=== PATIENT | male | born 1945 | race Caucasian/White ===

== ENCOUNTER 2023-12-10 14:29 | Emergency (ER) | payer OTHER, MEDICARE ==
[~2023-12-10] VITALS: Ht 193 cm; Wt 119.3 kg
[2023-12-10 14:39] VITALS: BP_SYST 137; PULSE 82; RESP 19; TEMP 98.2; O2SAT 96
[2023-12-10] MEDS: LIDOCAINE 1% 10 MG/ML, 20 ML MDV INJ ONE (15:30)
[2023-12-10 16:23] VITALS: BP_SYST 137; PULSE 83; RESP 19; TEMP 98.2; O2SAT 94
== END 2023-12-10 16:23 | disposition home or self-care (01) ==
LOC: SED 14:29
DX: S60.445A External constriction of left ring finger, initial encounter (principal); J44.9 Chronic obstructive pulmonary disease, unspecified; I12.0 Hypertensive chronic kidney disease with stage 5 chronic kidney disease or end stage renal disease; N18.6 End stage renal disease; Z79.899 Other long term (current) drug therapy; W49.04XA Ring or other jewelry causing external constriction, initial encounter; Y93.89 Activity, other specified; Y92.89 Other specified places as the place of occurrence of the external cause; Y99.8 Other external cause status
CPT/HCPCS: 99284; J2001

== ENCOUNTER 2023-12-29 06:39 | Inpatient (IN) | payer OTHER, MEDICARE ==
[~2023-12-29] VITALS: Ht 193 cm; Wt 113.6 kg
[2023-12-29 06:46] VITALS: BP_SYST 160; PULSE 88; RESP 14; TEMP 97.6; O2SAT 92
[2023-12-29] MEDS: ASPIRIN 81 MG TAB.CHEW PO ONE (06:58)
[2023-12-29] MEDS: NITROGLYCERIN 1 INCH (GM) OINT. TP ONE (07:00)
[2023-12-29 07:01] LABS: BASOPHILS # (AUTO) 0.1 K/uL (0.0-0.2); BASOPHILS % (AUTO) 0.9 % (0.0-2.0); EOSINOPHILS # (AUTO) 0.2 K/uL (0.0-0.4); EOSINOPHILS % (AUTO) 1.6 % (0.0-4.0); HEMATOCRIT 33.6 % (36-54); HEMOGLOBIN 11.7 g/dL (14.0-18.0); LYMPHOCYTES # (AUTO) 1.6 K/uL (1.0-5.5); LYMPHOCYTES % (AUTO) 15.7 % (20.5-51.5); MEAN CORPUSCULAR HEMOGLOBIN 33 pg (27-31); MEAN CORPUSCULAR HGB CONC 35 % (32-36); MEAN CORPUSCULAR VOLUME 93 fL (79.0-98.0); MONOCYTES # (AUTO) 0.6 K/uL (0.0-1.0); MONOCYTES % (AUTO) 5.9 % (1.7-9.3); NEUTROPHILS # (AUTO) 7.7 K/uL (1.8-7.7); NEUTROPHILS % (AUTO) 75.9 % (40.0-70.0); PLATELET COUNT (AUTO) 182 K/uL (130-430); RED CELL DISTRIBUTION WIDTH 16.9 % (9.0-15.0); WHITE BLOOD COUNT (AUTO) 10.1 K/uL (4.8-10.8)
[2023-12-29] MEDS: MORPHINE 2 MG/ML INJ. SYRINGE IVP ONE (07:02)
[2023-12-29] MEDS: NITROGLYCERIN 0.4 MG TAB.SUBL SL ONE (07:02)
[2023-12-29 07:20] LABS: ANION GAP 16 (5-15); CALCIUM 9.1 mg/dL (8.4-11.0); CARBON DIOXIDE 24 mmol/L (23-29); CHLORIDE 105 mmol/L (98-107); CREATININE 5.78 mg/dL (0.55-1.30); GLUCOSE 152 mg/dL (74-106); POTASSIUM 3.6 mmol/L (3.5-5.1); SODIUM SERUM 145 mmol/L (136-145); UREA NITROGEN, BLOOD 52 mg/dL (8-21)
[2023-12-29] MEDS ORDERED: ATOR-1 PO (07:29)
[2023-12-29] MEDS ORDERED: DONE10TA4 PO (07:29)
[2023-12-29] MEDS ORDERED: FOLI-43 PO (07:29)
[2023-12-29] MEDS ORDERED: PANT20TA2 PO (07:29)
[2023-12-29] MEDS ORDERED: RIVA15TA PO (07:29)
[2023-12-29] MEDS ORDERED: FURO20TA4 PO (07:29)
[2023-12-29] MEDS ORDERED: FLUT1BLS5 INH (07:38)
[2023-12-29] MEDS ORDERED: ONDANSETRON HCL 4 MG/2 ML VIAL IVP PRN (08:30)
[2023-12-29] MEDS ORDERED: MAGNESIUM SULFATE 50 ML IV PRN (08:30)
[2023-12-29] MEDS ORDERED: LORazepam 2 MG/ML VIAL IVP PRN (08:30)
[2023-12-29] MEDS ORDERED: MORPHINE 2 MG/ML INJ. SYRINGE IVP PRN (08:30)
[2023-12-29] MEDS ORDERED: MUPIROCIN 2% TOPICAL OINTMENT 22 GM NS PRN (08:30)
[2023-12-29] MEDS ORDERED: ZOLPIDEM TARTRATE 5 MG TABLET PO PRN (08:30)
[2023-12-29 09:59] VITALS: BP_SYST 133; PULSE 60; RESP 16; TEMP 98; O2SAT 96
[2023-12-29] MEDS: IPRATROPIUM/ALBUTEROL SULFATE 3 ML AMPUL.NEB (DUONEB) ONE (10:29)
[2023-12-29 10:30] VITALS: BP_SYST 123; PULSE 69; O2SAT 97
[2023-12-29 10:40] VITALS: O2SAT 97
[2023-12-29] MEDS ORDERED: IPRATROPIUM/ALBUTEROL SULFATE 3 ML AMPUL.NEB (DUONEB) INH ONE (11:00)
[2023-12-29] MEDS ORDERED: ACETAMINOPHEN 500 MG TABLET PO PRN ×2 (11:15)
[2023-12-29] MEDS: FOLIC ACID 1 MG TABLET PO ONE (11:17)
[2023-12-29] MEDS: ATORVASTATIN 20 MG TABLET PO ONE (11:17)
[2023-12-29] MEDS: FUROSEMIDE 20 MG TABLET PO ONE (11:29)
[2023-12-29 12:00] VITALS: BP_SYST 131; PULSE 16; RESP 16; TEMP 98; O2SAT 97
[2023-12-29] MEDS: RIVAROXABAN 15 MG TABLET PO ONE (12:38)
[2023-12-29] MEDS ORDERED: FOLI0.8T42 PO (14:05)
[2023-12-29] MEDS ORDERED: SERT25TA PO (14:05)
[2023-12-29] MEDS ORDERED: COR6.25 PO (14:05)
[2023-12-29] MEDS ORDERED: IPRATROPIUM/ALBUTEROL SULFATE 3 ML AMPUL.NEB (DUONEB) INH PRN (16:00)
[2023-12-29 20:20] VITALS: BP_SYST 133; PULSE 72; RESP 20; TEMP 97.9; O2SAT 96; O2SAT 98
[2023-12-29] MEDS: CARVEDILOL 6.25 MG TABLET (COREG) PO SCH (22:49)
[2023-12-30] VITALS (7 sets, daily range): BP systolic 103–144; PULSE 59–70; RESP 12–20; TEMP 97.5–98.2; O2SAT 91–98
[2023-12-30] MEDS: ACETAMINOPHEN 500 MG TABLET PO PRN (01:14)
[2023-12-30 04:43] LABS: ANION GAP 10 (5-15); CALCIUM 8.7 mg/dL (8.4-11.0); CARBON DIOXIDE 31 mmol/L (23-29); CHLORIDE 103 mmol/L (98-107); GLUCOSE 123 mg/dL (74-106); SODIUM SERUM 144 mmol/L (136-145); UREA NITROGEN, BLOOD 40 mg/dL (8-21)
[2023-12-30] MEDS: MORPHINE 2 MG/ML INJ. SYRINGE IVP PRN (04:49)
[2023-12-30 04:52] LABS: BASOPHILS # (AUTO) 0.1 K/uL (0.0-0.2); BASOPHILS % (AUTO) 1.4 % (0.0-2.0); EOSINOPHILS # (AUTO) 0.1 K/uL (0.0-0.4); EOSINOPHILS % (AUTO) 1.6 % (0.0-4.0); HEMATOCRIT 31.1 % (36-54); HEMOGLOBIN 10.9 g/dL (14.0-18.0); LYMPHOCYTES # (AUTO) 1.4 K/uL (1.0-5.5); LYMPHOCYTES % (AUTO) 17.2 % (20.5-51.5); MEAN CORPUSCULAR HEMOGLOBIN 33 pg (27-31); MEAN CORPUSCULAR HGB CONC 35 % (32-36); MEAN CORPUSCULAR VOLUME 93 fL (79.0-98.0); MONOCYTES # (AUTO) 0.7 K/uL (0.0-1.0); MONOCYTES % (AUTO) 9.1 % (1.7-9.3); NEUTROPHILS # (AUTO) 5.6 K/uL (1.8-7.7); NEUTROPHILS % (AUTO) 70.7 % (40.0-70.0); PLATELET COUNT (AUTO) 159 K/uL (130-430); RED BLOOD CELL COUNT(AUTO) 3.34 MIL/uL (4.2-6.2); RED CELL DISTRIBUTION WIDTH 16.8 % (9.0-15.0); WHITE BLOOD COUNT (AUTO) 7.9 K/uL (4.8-10.8)
[2023-12-30] MEDS: FOLIC ACID 1 MG TABLET PO SCH (08:42)
[2023-12-30] MEDS: ATORVASTATIN 20 MG TABLET PO SCH (08:43)
[2023-12-30] MEDS: RIVAROXABAN 15 MG TABLET PO SCH (08:46)
[2023-12-30] MEDS: FUROSEMIDE 20 MG TABLET PO SCH (08:48)
[2023-12-30] MEDS: POTASSIUM CHLORIDE 20 MEQ TABLET.ER PO PRN (09:00)
[2023-12-30] MEDS: HYDROcodone/ACETAMIN 5-325 MG TAB (NORCO/ VICODIN) PO PRN (12:06)
[2023-12-30] MEDS: CARVEDILOL 3.125 MG TABLET (COREG) PO SCH (21:19)
[2023-12-30] MEDS: SERTRALINE HCL 50 MG TABLET PO SCH (21:19)
[2023-12-31 00:05] VITALS: BP_SYST 138; PULSE 65; RESP 18; TEMP 97.5; O2SAT 95
[2023-12-31] MEDS: DOCUSATE SODIUM 100 MG CAPSULE PO PRN (00:09)
[2023-12-31 03:30] VITALS: O2SAT 95
[2023-12-31 05:57] LABS: BASOPHILS # (AUTO) 0.2 K/uL (0.0-0.2); BASOPHILS % (AUTO) 2.2 % (0.0-2.0); EOSINOPHILS # (AUTO) 0.2 K/uL (0.0-0.4); EOSINOPHILS % (AUTO) 2.8 % (0.0-4.0); HEMATOCRIT 32.1 % (36-54); HEMOGLOBIN 11.2 g/dL (14.0-18.0); LYMPHOCYTES # (AUTO) 1.9 K/uL (1.0-5.5); LYMPHOCYTES % (AUTO) 25.3 % (20.5-51.5); MEAN CORPUSCULAR HEMOGLOBIN 32 pg (27-31); MEAN CORPUSCULAR HGB CONC 35 % (32-36); MEAN CORPUSCULAR VOLUME 93 fL (79.0-98.0); MONOCYTES # (AUTO) 0.7 K/uL (0.0-1.0); MONOCYTES % (AUTO) 9.6 % (1.7-9.3); NEUTROPHILS # (AUTO) 4.6 K/uL (1.8-7.7); NEUTROPHILS % (AUTO) 60.1 % (40.0-70.0); PLATELET COUNT (AUTO) 178 K/uL (130-430); RED BLOOD CELL COUNT(AUTO) 3.45 MIL/uL (4.2-6.2); RED CELL DISTRIBUTION WIDTH 16.6 % (9.0-15.0); WHITE BLOOD COUNT (AUTO) 7.6 K/uL (4.8-10.8)
[2023-12-31 06:26] LABS: ALANINE AMINOTRANSFERASE 18 U/L (12-78); ALBUMIN 3.5 g/dL (3.4-4.8); ANION GAP 12 (5-15); ASPARTATE AMINOTRANSFERASE < 5 U/L (10-37); BILIRUBIN,DIRECT 0.2 mg/dL (0.0-0.3); CALCIUM 9.1 mg/dL (8.4-11.0); CARBON DIOXIDE 28 mmol/L (23-29); CHLORIDE 104 mmol/L (98-107); CREATININE 5.55 mg/dL (0.55-1.30); GLUCOSE 127 mg/dL (74-106); POTASSIUM 3.8 mmol/L (3.5-5.1); SODIUM SERUM 144 mmol/L (136-145); TOTAL PROTEIN, SERUM 6.9 g/dL (6.4-8.3); UREA NITROGEN, BLOOD 53 mg/dL (8-21)
[2023-12-31 07:25] VITALS: BP_SYST 146; PULSE 86; RESP 18; TEMP 97.1; O2SAT 96
[2023-12-31 13:30] VITALS: BP_SYST 121; PULSE 136; RESP 18; TEMP 97.1; O2SAT 93
[2024-01-01] MEDS ORDERED: PANT40TA45 PO (11:57)
== END 2023-12-31 14:15 | disposition home or self-care (01) | DRG 291 ==
LOC: SED 06:39 → STU 08:23 → SMU 12-30 16:11
PROVIDERS: ADMIT General Practice; ATTEND General Practice
PROC: 5A1D70Z Performance of Urinary Filtration, Intermittent, Less than 6 Hours Per Day (ICD-10-PCS; principal; 2023-12-29)
PROC: 5A1D70Z Performance of Urinary Filtration, Intermittent, Less than 6 Hours Per Day (ICD-10-PCS; 2023-12-31)
DX: I13.2 Hypertensive heart and chronic kidney disease with heart failure and with stage 5 chronic kidney disease, or end stage renal disease (principal); I50.43 Acute on chronic combined systolic (congestive) and diastolic (congestive) heart failure; N18.6 End stage renal disease; I48.20 Chronic atrial fibrillation, unspecified; I25.10 Atherosclerotic heart disease of native coronary artery without angina pectoris; G30.8 Other Alzheimer's disease; J44.9 Chronic obstructive pulmonary disease, unspecified; E78.5 Hyperlipidemia, unspecified; D63.1 Anemia in chronic kidney disease; F02.80 Dementia in other diseases classified elsewhere, unspecified severity, without behavioral disturbance, psychotic disturbance, mood disturbance, and anxiety; Z79.899 Other long term (current) drug therapy; Z99.2 Dependence on renal dialysis; Z95.5 Presence of coronary angioplasty implant and graft; Z95.0 Presence of cardiac pacemaker; Z90.49 Acquired absence of other specified parts of digestive tract; Z87.891 Personal history of nicotine dependence; Z79.01 Long term (current) use of anticoagulants
CPT/HCPCS: 36415; 71045; 80048; 80076; 82948; 83037; 83735; 83880; 84484; 85025; 87081; 90935; 93005; 93306; 93880; 94640; 94760; 96374; 97112-GP; 97116-GP; 99285; G0378; J2270

== ENCOUNTER 2023-12-31 23:12 | Inpatient (IN) | payer OTHER, MEDICARE ==
[~2023-12-31] VITALS: Ht 193 cm; Wt 112.1 kg
[~2023-12-31 23:12] MED LIST: ATOR-1 PO; COR6.25 PO; DONE10TA4 PO; FLUT1BLS5 INH; FOLI-43 PO; FOLI0.8T42 PO; FURO20TA4 PO; PANT20TA2 PO; RIVA15TA PO; SERT25TA PO
[2023-12-31 23:49] VITALS: BP_SYST 119; PULSE 65; RESP 19; TEMP 97.5; O2SAT 93
[2024-01-01] VITALS (8 sets, daily range): BP systolic 129–142; PULSE 60–78; RESP 14–20; TEMP 98.3–98.7; O2SAT 92–95
[2024-01-01] MEDS ORDERED: ACETAMINOPHEN 325 MG TABLET PO PRN (00:30)
[2024-01-01] MEDS ORDERED: VANCOMYCIN HCL 1000 MG/VIAL IV ONE (00:54)
[2024-01-01] MEDS: VANCOMYCIN HCL 1,000 MG in NS 250 ML IV ONE (01:11)
[2024-01-01] MEDS: MORPHINE 4 MG INJ. 4 MG/ML VIAL IVP ONE (01:19)
[2024-01-01 01:20] LABS: BASOPHILS # (AUTO) 0.2 K/uL (0.0-0.2); BASOPHILS % (AUTO) 2.5 % (0.0-2.0); EOSINOPHILS # (AUTO) 0.1 K/uL (0.0-0.4); EOSINOPHILS % (AUTO) 1.1 % (0.0-4.0); HEMATOCRIT 32.5 % (36-54); HEMOGLOBIN 11.7 g/dL (14.0-18.0); LYMPHOCYTES # (AUTO) 1.5 K/uL (1.0-5.5); MEAN CORPUSCULAR HEMOGLOBIN 33 pg (27-31); MEAN CORPUSCULAR HGB CONC 36 % (32-36); MEAN CORPUSCULAR VOLUME 92 fL (79.0-98.0); MONOCYTES % (AUTO) 10.7 % (1.7-9.3); NEUTROPHILS # (AUTO) 6.6 K/uL (1.8-7.7); NEUTROPHILS % (AUTO) 69.7 % (40.0-70.0); PLATELET COUNT (AUTO) 187 K/uL (130-430); RED BLOOD CELL COUNT(AUTO) 3.55 MIL/uL (4.2-6.2); RED CELL DISTRIBUTION WIDTH 16.9 % (9.0-15.0); WHITE BLOOD COUNT (AUTO) 9.5 K/uL (4.8-10.8)
[2024-01-01 02:01] LABS: ANION GAP 12 (5-15); CALCIUM 9.4 mg/dL (8.4-11.0); CARBON DIOXIDE 27 mmol/L (23-29); CHLORIDE 102 mmol/L (98-107); CREATININE 5.08 mg/dL (0.55-1.30); GLUCOSE 145 mg/dL (74-106); POTASSIUM 4.2 mmol/L (3.5-5.1); SODIUM SERUM 141 mmol/L (136-145); UREA NITROGEN, BLOOD 54 mg/dL (8-21)
[2024-01-01] MEDS: CEFEPIME 1 GM/VIAL (MAXIPIME) ONE (03:37)
[2024-01-01] MEDS: CEFEPIME 1 GM in D5W 50 ML IV ONE (03:44)
[2024-01-01] MEDS: HYDROcodone/ACETAMIN 5-325 MG TAB (NORCO/ VICODIN) PO PRN (06:22)
[2024-01-01] MEDS ORDERED: ONDANSETRON HCL 4 MG/2 ML VIAL IVP PRN (06:45)
[2024-01-01] MEDS ORDERED: ALBUTEROL SULFATE 0.083% 2.5 MG/3 ML VIAL.NEB INH PRN (06:45)
[2024-01-01] MEDS ORDERED: IPRATROPIUM BROM 0.5 MG/2.5 ML VIAL.NEB (ATROVENT) INH PRN (06:45)
[2024-01-01 07:45] LABS: ALANINE AMINOTRANSFERASE 23 U/L (12-78); ALBUMIN 3.4 g/dL (3.4-4.8); ANION GAP 11 (5-15); ASPARTATE AMINOTRANSFERASE < 5 U/L (10-37); CARBON DIOXIDE 26 mmol/L (23-29); CHLORIDE 104 mmol/L (98-107); GLUCOSE 134 mg/dL (74-106); POTASSIUM 3.6 mmol/L (3.5-5.1); SODIUM SERUM 141 mmol/L (136-145); TOTAL BILIRUBIN 0.8 mg/dL (0.0-1.0); TOTAL PROTEIN, SERUM 6.9 g/dL (6.4-8.3); UREA NITROGEN, BLOOD 54 mg/dL (8-21)
[2024-01-01] MEDS: PANTOPRAZOLE SODIUM 40 MG TAB PO SCH (09:38)
[2024-01-01] MEDS: CARVEDILOL 6.25 MG TABLET (COREG) PO SCH (09:39)
[2024-01-01] MEDS: SERTRALINE HCL 50 MG TABLET PO SCH (09:40)
[2024-01-01] MEDS ORDERED: PANT40TA45 PO (11:57)
[2024-01-01] MEDS: NS IV SCH (12:52)
[2024-01-01] MEDS: DAPTOMYCIN IV SCH (12:52)
[2024-01-01] MEDS: RIVAROXABAN 15 MG TABLET PO SCH (19:07)
[2024-01-01] MEDS ORDERED: CEFEPIME 0.5 GM in D5W 50 ML IV SCH (21:00)
[2024-01-01] MEDS: ATORVASTATIN 20 MG TABLET PO SCH (21:20)
[2024-01-01] MEDS: DONEPEZIL HCL 5 MG TABLET (ARICEPT) PO SCH (21:20)
[2024-01-02] VITALS: BP_SYST 135; PULSE 64; RESP 16; TEMP 98.8; O2SAT 97
[2024-01-02 05:07] LABS: BASOPHILS # (AUTO) 0.1 K/uL (0.0-0.2); BASOPHILS % (AUTO) 1.7 % (0.0-2.0); EOSINOPHILS # (AUTO) 0.2 K/uL (0.0-0.4); HEMATOCRIT 30.8 % (36-54); HEMOGLOBIN 10.7 g/dL (14.0-18.0); LYMPHOCYTES # (AUTO) 1.7 K/uL (1.0-5.5); LYMPHOCYTES % (AUTO) 24.8 % (20.5-51.5); MEAN CORPUSCULAR HEMOGLOBIN 32 pg (27-31); MEAN CORPUSCULAR HGB CONC 35 % (32-36); MEAN CORPUSCULAR VOLUME 93 fL (79.0-98.0); MONOCYTES # (AUTO) 0.7 K/uL (0.0-1.0); MONOCYTES % (AUTO) 10.2 % (1.7-9.3); NEUTROPHILS # (AUTO) 4.1 K/uL (1.8-7.7); NEUTROPHILS % (AUTO) 60.3 % (40.0-70.0); PLATELET COUNT (AUTO) 164 K/uL (130-430); RED BLOOD CELL COUNT(AUTO) 3.31 MIL/uL (4.2-6.2); RED CELL DISTRIBUTION WIDTH 16.3 % (9.0-15.0); WHITE BLOOD COUNT (AUTO) 6.8 K/uL (4.8-10.8)
[2024-01-02 05:27] LABS: ANION GAP 12 (5-15); CALCIUM 8.9 mg/dL (8.4-11.0); CARBON DIOXIDE 26 mmol/L (23-29); CHLORIDE 101 mmol/L (98-107); CREATININE 6.02 mg/dL (0.55-1.30); GLUCOSE 113 mg/dL (74-106); SODIUM SERUM 139 mmol/L (136-145); UREA NITROGEN, BLOOD 61 mg/dL (8-21)
[2024-01-02 08:00] VITALS: BP_SYST 143; PULSE 82; RESP 18; TEMP 97.9; O2SAT 98
[2024-01-02 12:37] VITALS: BP_SYST 118; PULSE 79; RESP 16; TEMP 98.1; O2SAT 97
[2024-01-02 12:53] VITALS: BP_SYST 122; PULSE 80; RESP 18; TEMP 98
[2024-01-02 16:25] VITALS: BP_SYST 126; PULSE 73; RESP 16; TEMP 98.8; O2SAT 97
[2024-01-02 20:00] VITALS: BP_SYST 135; PULSE 75; RESP 18; TEMP 98.6; O2SAT 96
[2024-01-02] MEDS: HYDROcodone/ACETAMIN 10-325 MG TAB PO PRN (21:13)
[2024-01-03] VITALS: BP_SYST 129; PULSE 78; RESP 18; TEMP 97.2; O2SAT 96
[2024-01-03 00:09] VITALS: BP_SYST 113; PULSE 97; RESP 18; TEMP 98.2; O2SAT 95
[2024-01-03 06:36] LABS: BASOPHILS # (AUTO) 0.2 K/uL (0.0-0.2); BASOPHILS % (AUTO) 2.1 % (0.0-2.0); EOSINOPHILS # (AUTO) 0.2 K/uL (0.0-0.4); EOSINOPHILS % (AUTO) 2.5 % (0.0-4.0); HEMATOCRIT 34.5 % (36-54); HEMOGLOBIN 12.1 g/dL (14.0-18.0); LYMPHOCYTES # (AUTO) 2.2 K/uL (1.0-5.5); LYMPHOCYTES % (AUTO) 26.7 % (20.5-51.5); MEAN CORPUSCULAR HEMOGLOBIN 33 pg (27-31); MEAN CORPUSCULAR HGB CONC 35 % (32-36); MEAN CORPUSCULAR VOLUME 93 fL (79.0-98.0); MONOCYTES # (AUTO) 0.9 K/uL (0.0-1.0); MONOCYTES % (AUTO) 10.9 % (1.7-9.3); NEUTROPHILS # (AUTO) 4.7 K/uL (1.8-7.7); NEUTROPHILS % (AUTO) 57.8 % (40.0-70.0); PLATELET COUNT (AUTO) 203 K/uL (130-430); RED BLOOD CELL COUNT(AUTO) 3.71 MIL/uL (4.2-6.2); RED CELL DISTRIBUTION WIDTH 16.8 % (9.0-15.0); WHITE BLOOD COUNT (AUTO) 8.1 K/uL (4.8-10.8)
[2024-01-03 06:54] LABS: ANION GAP 10 (5-15); CALCIUM 9.3 mg/dL (8.4-11.0); CARBON DIOXIDE 29 mmol/L (23-29); CHLORIDE 99 mmol/L (98-107); CREATINE KINASE, TOTAL 97 U/L (39-308); CREATININE 5.41 mg/dL (0.55-1.30); GLUCOSE 125 mg/dL (74-106); POTASSIUM 3.8 mmol/L (3.5-5.1); SODIUM SERUM 138 mmol/L (136-145); UREA NITROGEN, BLOOD 47 mg/dL (8-21)
[2024-01-03 08:00] VITALS: BP_SYST 124; PULSE 64; RESP 18; TEMP 97.7; O2SAT 96
[2024-01-03 12:00] VITALS: BP_SYST 110; PULSE 62; RESP 19; TEMP 97.5; O2SAT 97
[2024-01-03] MEDS ORDERED: fentaNYL CITRATE/PF 100 MCG/2 ML AMP ONE (13:19)
[2024-01-03 16:00] VITALS: BP_SYST 109; PULSE 63; RESP 18; TEMP 97.8; O2SAT 97
[2024-01-03 20:23] VITALS: BP_SYST 118; PULSE 58; RESP 16; TEMP 98.2; O2SAT 97
[2024-01-04] VITALS: BP_SYST 114; PULSE 64; RESP 17; TEMP 97.7; O2SAT 98
[2024-01-04 06:35] VITALS: BP_SYST 133; PULSE 62; RESP 16
[2024-01-04 07:27] LABS: ALANINE AMINOTRANSFERASE 26 U/L (12-78); ALBUMIN 3.7 g/dL (3.4-4.8); ANION GAP 10 (5-15); ASPARTATE AMINOTRANSFERASE 17 U/L (10-37); CALCIUM 9.4 mg/dL (8.4-11.0); CARBON DIOXIDE 27 mmol/L (23-29); CHLORIDE 103 mmol/L (98-107); CREATININE 6.68 mg/dL (0.55-1.30); GLUCOSE 113 mg/dL (74-106); POTASSIUM 4.2 mmol/L (3.5-5.1); SODIUM SERUM 140 mmol/L (136-145); TOTAL PROTEIN, SERUM 7.4 g/dL (6.4-8.3); UREA NITROGEN, BLOOD 60 mg/dL (8-21)
[2024-01-04 07:50] VITALS: PULSE 65; O2SAT 98
[2024-01-04 08:00] VITALS: BP_SYST 143; PULSE 66; RESP 18; TEMP 97.8
[2024-01-04 11:21] VITALS: BP_SYST 128; BP_SYST 151; PULSE 50; PULSE 71; RESP 16; RESP 17; TEMP 97.3; O2SAT 93; O2SAT 94
[2024-01-04 13:12] VITALS: BP_SYST 143; PULSE 66; RESP 18; TEMP 97.8; O2SAT 95
== END 2024-01-04 14:00 | disposition home or self-care (01) | DRG 314 ==
LOC: SED 23:12 → STU 01-01 00:20 → SMU 01-02 08:09
PROVIDERS: ADMIT Internal Medicine; ATTEND Internal Medicine
PROC: 5A1D70Z Performance of Urinary Filtration, Intermittent, Less than 6 Hours Per Day (ICD-10-PCS; principal; 2024-01-02)
DX: T82.7XXA Infection and inflammatory reaction due to other cardiac and vascular devices, implants and grafts, initial encounter (principal); N18.6 End stage renal disease; I48.20 Chronic atrial fibrillation, unspecified; I50.42 Chronic combined systolic (congestive) and diastolic (congestive) heart failure; I13.2 Hypertensive heart and chronic kidney disease with heart failure and with stage 5 chronic kidney disease, or end stage renal disease; L03.114 Cellulitis of left upper limb; D63.8 Anemia in other chronic diseases classified elsewhere; I25.10 Atherosclerotic heart disease of native coronary artery without angina pectoris; Z79.899 Other long term (current) drug therapy; Z95.5 Presence of coronary angioplasty implant and graft; Z95.0 Presence of cardiac pacemaker; Z99.2 Dependence on renal dialysis
CPT/HCPCS: 36415; 73201; 80048; 80053; 82550; 83605; 85025; 85651; 87040; 87081; 90937; 93922; 94760; 96365; 96375; 99285; G0378; J0692; J0878; J2270; J3010; J3370; J7060; Q9967